=== PATIENT | male | born 1955 | race Caucasian/White ===

== ENCOUNTER → 2024-04-04 | Outpatient (CLI) | payer MEDICARE ==
[2024-04-04 15:23] LABS: Alpha Fetoprotein, Tumor Mkr <3.00 ng/mL (0.00-7.90); Carcinoembryonic Antigen <2.0 ng/mL (0.0-4.9)
[2024-04-04 18:02] LABS: Cancer Antigen 19-9 6.9 U/mL (0.0-34.9)
== END | disposition home or self-care (01) ==
LOC: LABWHC1 08:59
DX: K86.2 Cyst of pancreas (principal)
CPT/HCPCS: 36415; 82105; 82378; 82565; 86301